=== PATIENT | female | born 1985 | race Caucasian/White ===

== ENCOUNTER 2022-06-08 16:49 | Emergency (ER) | payer SELFPAY ==
[2022-06-08 16:53] VITALS: BP 107/67; PULSE 70; RESP 18; TEMP 36.4; O2SAT 100
--- NOTE | 2022-06-08 17:18 | ED.FEMALEGU ---
HPI - Female Genitourinary General Chief complaint: Urogenital-Female Stated complaint: dizziness - near syncope Time Seen by Provider: 06/08/22 17:10 History of Present Illness HPI Narrative: Patient is a 37-year-old female presenting with vaginal pain. Patient states that she had a labioplasty earlier today. States that it was performed in office with moderate sedation. States that she was on Valium and had local numbing medicine. States that after the procedure her pain was well controlled. Unfortunately, after the numbing medicine wore off she experienced severe pain in her labia. States that she has been taking Tylenol without relief. States that she almost passed out because the pain is so severe. Patient called her surgeon who stated that typically people do not have this much pain. Patient denies any worsening swelling or bleeding from the procedure area. Denies further complaints. Related Data Allergies Allergy/AdvReac Type Severity Reaction Status Date / Time No Known Allergies Allergy Verified 06/08/22 16:50 Review of Systems Review of Systems: All systems reviewed & are unremarkable except as noted in HPI and below Exam Narrative: GENERAL: tearful, distressed 2/2 pain HEAD: Normocephalic, atraumatic. EYES: PERRLA and EOMI. ENT: Nares clear, no rhinorrhea or epistaxis. Mucous membranes moist. NECK: Supple. CHEST: No respiratory distress. HEART: Regular rate and rhythm ABDOMEN: Soft, nontender, nondistended : bilateral labia with incisions that are well approximated, no bleeding or hematomas noted EXTREMITIES: Normal range of motion. No edema. SKIN: Warm, dry, no rash. NEURO: No focal deficits. Alert and oriented x3. PSYCH: Normal mood and affect. Course Vital Signs Vital signs: Vital Signs Temperature 97.5 F L 06/08/22 16:53 Pulse Rate 70 06/08/22 16:53 Respiratory Rate 18 06/08/22 16:53 Blood Pressure 107/67 06/08/22 16:53 Pulse Oximetry 100 06/08/22 16:53 Oxygen Delivery Room Air 06/08/22 16:53 Temperature 97.5 F L 06/08/22 16:53 Pulse Rate 70 06/08/22 16:53 Respiratory Rate 18 06/08/22 16:53 Blood Pressure 107/67 06/08/22 16:53 Pulse Oximetry 100 06/08/22 16:53 Oxygen Delivery Room Air 06/08/22 16:53 MDM - Female Genitourinary MDM Narrative Medical decision making narrative: Patient is a 37-year-old female presenting with labial pain status post labioplasty. Exam remarkable for the above. Incisions appear to be intact. No hematomas. I spoke with the patient's surgeon who states that the patient already received quite a bit of lidocaine as well as Marcaine. She advises trying to control her pain with oral medications. States that the patient has a prescription for Valium already. Patient given a dose of oxycodone. An ice pack has been applied to her perineum. Patient surgeon states that she has an appointment with her tomorrow morning at 830. On reevaluation, the patient states that her pain is improved. States it is now bearable. Patient feels comfortable going home. She will follow-up as scheduled with her surgeon in the morning. Sent in a prescription for 3 tablets of oxycodone and 5 tabs of Zofran. Appropriate return precautions given. Patient voiced understanding and is agreeable with plan. Discharged in stable condition. Differential Diagnosis Differential diagnosis: Likely other (postoperative pain) Medical Records Attestation: I reviewed the patient's medical records. Critical Care Time Critical Care Time Critical Care Time: No Discharge Plan Discharge Clinical Impression: Other acute postprocedural pain, Labial pain Patient Disposition: Home, Self-Care Condition: Stable Instructions: Antibiotic Form, Pain Management After Surgery (DC) Additional Instructions: Please use the pain medicine as prescribed. Please follow-up with your surgeon as scheduled. If your pain suddenly worsens, you begin bleeding,
[2022-06-08] MEDS: oxyCODONE HCL (*CRX) 5 MG TAB IR PO (17:55)
== END 2022-06-08 19:11 | disposition home or self-care (01) ==
PROVIDERS: Emergency Provider Emergency Medicine
DX: G89.18 Other acute postprocedural pain (principal); R10.2 Pelvic and perineal pain
CPT/HCPCS: 99283; A9270